=== PATIENT | female | born 1945 | race Caucasian/White ===

== ENCOUNTER 2016-06-21 10:07 | Day surgery (SDC) | payer OTHER, BC ==
[2016-06-19 13:17] LABS: BILIRUBIN,URINE NEGATIVE (NEGATIVE); BLOOD, URINE NEGATIVE (NEGATIVE); CLARITY/URINE CLEAR (CLEAR); COLOR,URINE YELLOW (YELLOW); GLUCOSE,URINE NEGATIVE (NEGATIVE); KETONES,URINE NEGATIVE (NEGATIVE); LEUKOCYTE ESTERASE ,URINE NEGATIVE (NEGATIVE); NITRITE, URINE NEGATIVE (NEGATIVE); PROTEIN URINE NEGATIVE (NEGATIVE); UROBILINOGEN,URINE 0.2 (0.2-1.0)
[2016-06-19 13:25] LABS: ANION GAP 3 (5-15); CALCIUM 9.8 mg/dL (8.4-11.0); CHLORIDE 102 mmol/L (98-107); CREATININE 0.91 mg/dL (0.55-1.30); GLUCOSE 102 mg/dL (70-99); POTASSIUM 4.2 mmol/L (3.5-5.1); SODIUM SERUM 139 mmol/L (136-145); UREA NITROGEN, BLOOD 15 mg/dL (8-21)
[2016-06-19 13:30] LABS: BASOPHILS % (AUTO) 0.4 % (0.0-2.0); EOSINOPHILS # (AUTO) 0.1 K/uL (0.0-0.4); HEMATOCRIT 38.2 % (36-48); HEMOGLOBIN 13.2 g/dL (12.0-16.0); LYMPHOCYTES # (AUTO) 1.3 K/uL (1.0-5.5); LYMPHOCYTES % (AUTO) 25.6 % (20.5-51.5); MEAN CORPUSCULAR HEMOGLOBIN 34 pg (27-31); MEAN CORPUSCULAR HGB CONC 35 % (32-36); MEAN CORPUSCULAR VOLUME 98 fL (79.0-98.0); MONOCYTES # (AUTO) 0.5 K/uL (0.0-1.0); MONOCYTES % (AUTO) 10.5 % (1.7-9.3); NEUTROPHILS # (AUTO) 3.1 K/uL (1.8-7.7); NEUTROPHILS % (AUTO) 62.5 % (40.0-70.0); PLATELET COUNT (AUTO) 177 K/uL (130-430); RED BLOOD CELL COUNT(AUTO) 3.89 MIL/uL (4.2-6.2); RED CELL DISTRIBUTION WIDTH 13.2 % (9.0-15.0)
[~2016-06-21] VITALS: Ht 172.7 cm; Wt 62.6 kg
[~2016-06-21 10:07] MED LIST: ALPR1TAB2 PO; ASCO-339 PO; BUSP10TA3 PO; CEFAZOLIN 1 GM IVPB PREMIX 50 ML IV ONE; FIORICET PO; FLUT1DIS3 INH; FROV2.5T6 PO; FURO-150 PO; GABA-531 PO; HYDR-3924 PO; HYOS0.1275 PO; LOSA100T11 PO; METO50TA7 PO; MONT10TA25 PO; NEU100 PO; POTA20PA3 PO; SPIRIVA INH; STRATTERA PO; TRAZ-126 PO
[2016-06-21] MEDS ORDERED: PROPOFOL 200MG/ 20ML VIAL (DIPRIVAN) IV ONE (11:38)
[2016-06-21] MEDS ORDERED: LR 1,000 ML IV.SOLN IV ONE (11:38)
[2016-06-21] MEDS ORDERED: fentaNYL CITRATE 250 MCG/5 ML AMP IV ONE (11:38)
[2016-06-21] MEDS ORDERED: MIDAZOLAM HCL 5 MG/5 ML VIAL IVP ONE (11:38)
[2016-06-21] MEDS ORDERED: NS IRRIG SOLN 1000 ML IR ONE (11:38)
[2016-06-21] MEDS ORDERED: SEVOFLURANE 15 MIN GAS INH ONE (11:38)
[2016-06-21] MEDS ORDERED: POLYMYXIN 500,000/BACIT.10,000 UNITS in NS IRR 1 L IR ONE (12:04)
[2016-06-21] MEDS ORDERED: LR 1,000 ML IV SCH (12:51)
[2016-06-21] MEDS ORDERED: HYDROmorphone 2 MG/ML VIAL IVP PRN ×2 (13:00)
[2016-06-21] MEDS ORDERED: ONDANSETRON HCL 4 MG/2 ML VIAL IVP PRN (13:00)
[2016-06-21] MEDS ORDERED: MEPERIDINE HCL/PF 25 MG/ML DISP.SYRIN IVP PRN ×2 (13:00)
[2016-06-21] MEDS ORDERED: HYDROmorphone 1 MG INJ. 1 MG/ML AMPUL IVP PRN (13:00)
[2016-06-21] MEDS ORDERED: HYDROmorphone 1 MG INJ. 1 MG/ML AMPUL ONE (14:51)
[2016-06-21 15:10] VITALS: BP_SYST 119
[2016-06-21] MEDS ORDERED: HYDROcodone/ACETAMIN 10-325 MG TAB PO PRN (15:30)
[2016-06-21] MEDS ORDERED: HYDROcodone/ACETAMIN 10-325 MG TAB ONE (15:32)
== END 2016-06-21 17:11 | disposition home or self-care (01) ==
LOC: SDS 10:07 → SMU 10:09 → SDS 17:11
PROVIDERS: ATTEND Orthopaedic Surgery
DX: M75.102 Unspecified rotator cuff tear or rupture of left shoulder, not specified as traumatic (principal); M75.42 Impingement syndrome of left shoulder; M19.012 Primary osteoarthritis, left shoulder; I10 Essential (primary) hypertension; I48.91 Unspecified atrial fibrillation; F98.8 Other specified behavioral and emotional disorders with onset usually occurring in childhood and adolescence; J45.909 Unspecified asthma, uncomplicated; J44.9 Chronic obstructive pulmonary disease, unspecified; G43.909 Migraine, unspecified, not intractable, without status migrainosus; Z90.710 Acquired absence of both cervix and uterus; Z90.49 Acquired absence of other specified parts of digestive tract; M47.812 Spondylosis without myelopathy or radiculopathy, cervical region
CPT/HCPCS: 23412; 23415; 36415; 71020; 80048; 81003; 85025; J0690; J1170; J2250; J2704; J3010; J7120; L3650